=== PATIENT | female | born 1995 | race Caucasian/White ===

== ENCOUNTER 2021-03-28 15:19 | Inpatient (IN) ==
[2021-03-28 16:11] LABS: Basophils # (auto) 0.05 K/uL (0-0.2); Basophils % (auto) 0.3 %; Eosinophils # (auto) 0.14 K/uL (0-0.5); Hemoglobin 10.5 g/dL (12.0-16.0); Immature Granulocytes # (auto) 0.11 K/uL (0.00-0.02); Immature Granulocytes % (auto) 0.8 %; Lymphocytes # (auto) 2.35 K/uL (1.2-3.4); Lymphocytes % (auto) 16.4 %; Mean Corpuscular Hemoglobin 28.7 pg (25-34); Mean Corpuscular Hgb Conc 33.9 g/dL (32-36); Mean Corpuscular Volume 84.7 fL (80-100); Mean Platelet Volume 10.3 fL (7.4-10.4); Monocytes % (auto) 8.4 %; Neutrophils # (auto) 10.44 K/uL (1.4-6.5); Neutrophils % (auto) 73.1 %; Platelet Count 446 K/uL (130-400); RDW Coefficient of Variation 13.9 % (11.5-14.5); RDW Standard Deviation 42.7 fL (36.4-46.3); Red Blood Count 3.66 M/uL (4.2-5.4); White Blood Count 14.29 K/uL (4.8-10.8)
[2021-03-28 16:29] LABS: Albumin Level 2.6 gm/dl (3.4-5.0); BUN Creatinine Ratio 12.2 (10-20); Calcium 9.3 mg/dl (8.5-10.1); Creatinine Clr Calc Pharmacy 136.9 ml/min; Est GFR (African American) 127.5 ml/min; Potassium 2.8 mmol/L (3.5-5.1)
[2021-03-28 16:32] LABS: Albumin Globulin Ratio 0.7 (0.9-2); Bilirubin,Total 0.2 mg/dl (0.2-1); Globulin 3.9 gm/dl (2.5-4.0); Total Protein 6.5 gm/dl (6.4-8.2)
[2021-03-28 17:03] LABS: Creatinine Urine Random 79.7 mg/dl; Protein Creatinine Ratio Urine 0.3 (0-0.2); Total Protein Urine Random 21.9 mg/dl (0-11.9)
[2021-03-28] MEDS ORDERED: OXYTOCIN 30 UNITS/500 ML BAG IV PRN ×2 (18:19→20:53)
--- NOTE | 2021-03-28 18:25 | History & Physical Report ---
Date of Service March 28, 2021 Assessment & Plan (1) Preeclampsia: Plan: BP checks and labs revealed BPs 130-140s/80-90s. Protein/Cr ratio 0.3. I discussed these results with patient, recommended IOL. She is agreeable, questions answered. Will plan to allow patient to eat dinner, then will place mata bulb and low dose pitocin. History of Present Illness Chief Complaint: elevated BP Primary Care Provider: NO PCP 26yo @ 38 0/7, sent from office for elevated BPs. No headache, vision changes, RUQ pain. + movement, no vaginal bleeding, leaking of fluid. No reg ctx. uncomplicated. Allergies Allergy/AdvReac Type Severity Reaction Status Date / Time AUGMENTIN,BIAXIN,ERYTHROMYCIN,SUPRAX,BACTRIM,ZITHROMAX Allergy Unknown Rash Uncoded 03/28/21 15:26 Home Medications Medication Instructions Recorded Confirmed Type prenat.vits,reno,zgf-[id number] 1 tab PO DAILY 08/27/20 03/28/21 History breast pump #1 ea 01/19/21 03/28/21 Rx Patient History Medical History Varicella vaccination Surgical History S/P tonsillectomy and adenoidectomy S/P wisdom tooth extraction Family History Grandmother (Maternal) Breast cancer Father Ulcerative colitis Denies family history of Ovarian cancer Colorectal cancer Social History Smoking Status: Never smoker Hx Alcohol Use: No Hx Substance Use: No Preferred Language: Lithuanian Communication Ability: Effective Visual Impairment: No Limitations Hearing Ability: Normal 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 Other Information That Helps Us Care for You: No Feels Safe at Home: No Is there a partner from a previous relationship who is making you feel unsafe now?: No Any Concerns about Your Family Situation: No Would You Like to Speak to Someone About Your Situation: No Safety Concerns: Feels Safe At This Time Dental Care, Regularly: Yes Seatbelt Use: always Sunscreen Use: Yes Do you think of yourself as: straight/heterosexual Gender Identity: Female Assistive Devices: None Review of Systems All systems reviewed & are unremarkable except as noted in HPI & below Physical Exam Constitutional: WD/WN, vitals as above Respiratory: normal respiratory effort, lungs clear to auscultation no respiratory distress Cardiovascular: Rate/Rhythm: regular rate and regular rhythm Gastrointestinal (Abdomen): Inspection/Auscultation: abdomen normal to inspection Percussion/Palpation: abdomen soft; abdomen nontender Gravid. No s/s chorio or abruption. Skin: no rashes, warm and dry Psychiatric: A+Ox3, euthymic affect Results & Data ([facility]) Vital Signs (Past 12 Hours) Vital Signs Temp Pulse Resp BP 03/28/21 17:39 93 H 146/88 H 03/28/21 17:29 88 140/89 03/28/21 17:20 83 137/89 03/28/21 17:09 88 136/83 03/28/21 17:00 88 131/83 03/28/21 16:49 88 138/83 03/28/21 16:39 82 144/91 H 03/28/21 16:30 88 146/94 H 03/28/21 16:19 82 135/84 03/28/21 16:09 86 137/89 03/28/21 16:00 95 H 136/89 03/28/21 15:50 91 H 141/85 H 03/28/21 15:39 88 138/85 03/28/21 15:27 37.1 C 98 H 20 137/91 Code Status & VTE Plan VTE Prophylaxis Plan VTE Prophylaxis will be ordered: No Monitoring External Monitor FHT Cat 1 Tocodynamometer none Coding Level of Care Code None Diagnoses Preeclampsia O14.90
[2021-03-28] MEDS ORDERED: ONDANSETRON INJ 2 MG/ML 2 ML VIAL ONE (20:23)
--- NOTE | 2021-03-28 20:23 | Labor Progress Brief Note ---
Date of Service March 28, 2021 Subjective Patient has eaten dinner. Feeling ok, just nauseated a bit - thinks this is from being nervous. FHT Cat 1 [place] rare Cervix 50/-3 Akbar bulb placed, insufflated with 35cc sterile water. Tolerated well. Will start low dose pitocin for cervical ripening. Assessment & Plan Admission and Anticipated Discharge Date Admission Date: March 28, 2021 Results & Data ([facility]) Vital Signs (Past 12 Hours) Vital Signs Temp Pulse Resp BP 03/28/21 19:36 36.7 C 18 03/28/21 17:39 93 H 146/88 H 03/28/21 17:29 88 140/89 03/28/21 17:20 83 137/89 03/28/21 17:09 88 136/83 03/28/21 17:00 88 131/83 03/28/21 16:49 88 138/83 03/28/21 16:39 82 144/91 H 03/28/21 16:30 88 146/94 H 03/28/21 16:19 82 135/84 03/28/21 16:09 86 137/89 03/28/21 16:00 95 H 136/89 03/28/21 15:50 91 H 141/85 H 03/28/21 15:39 88 138/85 03/28/21 15:27 37.1 C 98 H 20 137/91 Coding Level of Care Code None CPT Codes Misx Procedure Codes - 41898 Placement of cervical dilator: 44593 Placement of cervical dilator ([id number]) MAGNETIC PROSPECTOR Miscellaneous Codes Misx Procedure Codes 73052 Placement of cervical dilator
[2021-03-28] MEDS ORDERED: diphenhydrAMINE Capsule 25 MG CAP PO ONE (20:53)
[2021-03-28] MEDS: LACTATED RINGER'S 1,000 ML IV PRN (21:24)
[2021-03-29] MEDS: LACTATED RINGER'S 1,000 ML IV PRN ×2 (05:20→10:17)
[2021-03-29] MEDS: ONDANSETRON INJ 2 MG/ML 2 ML VIAL IV PRN ×2 (06:11→14:32)
[2021-03-29 06:57] LABS: Hematocrit (blood only) 31.7 % (37-47); Hemoglobin 10.7 g/dL (12.0-16.0); Mean Corpuscular Hemoglobin 28.3 pg (25-34); Mean Corpuscular Hgb Conc 33.8 g/dL (32-36); Mean Corpuscular Volume 83.9 fL (80-100); Mean Platelet Volume 10.5 fL (7.4-10.4); Platelet Count 411 K/uL (130-400); RDW Coefficient of Variation 13.9 % (11.5-14.5); RDW Standard Deviation 42.2 fL (36.4-46.3); Red Blood Count 3.78 M/uL (4.2-5.4); White Blood Count 19.49 K/uL (4.8-10.8)
[2021-03-29 07:24] LABS: Albumin Level 2.7 gm/dl (3.4-5.0); Calcium 9.5 mg/dl (8.5-10.1); Creatinine Clr Calc Pharmacy 126.8 ml/min; Est GFR (African American) 116.2 ml/min; Est GFR (Non-African American) 100.2 ml/min; Potassium 2.8 mmol/L (3.5-5.1)
[2021-03-29 07:27] LABS: Albumin Globulin Ratio 0.7 (0.9-2); Bilirubin,Total 0.3 mg/dl (0.2-1); Total Protein 6.7 gm/dl (6.4-8.2)
--- NOTE | 2021-03-29 07:37 | Labor Progress Brief Note ---
Date of Service March 29, 2021 Subjective Akbar bulb fell out last night, pitocin began to increase, now at 15. FHT Cat 1 [place] Q 2 SVE 4-5/70/-3, soft, posterior Continue IOL. Pt will want epidural at some point, not yet. Labs reviewed. Assessment & Plan Admission and Anticipated Discharge Date Admission Date: March 28, 2021 Results & Data ([facility]) Vital Signs (Past 12 Hours) Vital Signs Temp Pulse Resp BP 03/29/21 07:32 64 136/82 03/29/21 06:09 73 18 142/84 H 03/29/21 05:06 75 135/87 03/29/21 04:13 81 18 132/82 03/29/21 03:15 36.6 C 78 16 133/76 03/29/21 02:15 73 18 138/75 03/29/21 01:18 81 18 139/83 03/28/21 23:36 36.8 C 83 18 133/79 03/28/21 22:31 83 18 136/74 03/28/21 21:23 87 18 139/85 Coding Level of Care Code None
--- NOTE | 2021-03-29 09:25 | Labor Progress Brief Note ---
Date of Service March 29, 2021 Subjective Introduced myself to pt as taking over care earlier. Uncomfortable in bed w/ back pain, more tolerable on ball or standing/walking. Pit at 17 Assessment & Plan (1) Preeclampsia: Plan: 26 y/o G1 at 38 1/7 wga admitted for IOL for pre-eclampsia w/o SF VSS, normal to mild range BPs Fetus cat 1 Labor - pit at 17, now s/p arom. Continue augmentation GBS neg Epidural PRN Admission and Anticipated Discharge Date Admission Date: March 28, 2021 Physical Exam Genitourinary: Manual OB Exam: + cervical dilation 4 cm, + cervical effacement 70%, + station -2 and + amniotic fluid (AROM) clear OB Exam Monitor Tracing: + external FHT monitor used, + external uterine monitor used (q2-4) and + category I (145/mod/+accel/-decel) Results & Data ([facility]) Vital Signs (Past 12 Hours) Vital Signs Temp Pulse Resp BP 03/29/21 08:33 88 141/86 H 03/29/21 07:32 64 136/82 03/29/21 06:09 73 18 142/84 H 03/29/21 05:06 75 135/87 03/29/21 04:13 81 18 132/82 03/29/21 03:15 97.9 F 78 16 133/76 03/29/21 02:15 73 18 138/75 03/29/21 01:18 81 18 139/83 03/28/21 23:36 98.2 F 83 18 133/79 03/28/21 22:31 83 18 136/74 03/28/21 21:23 87 18 139/85 Coding Level of Care Code None Diagnoses Preeclampsia O14.90
[2021-03-29] MEDS ORDERED: ePHEDrine sulfate 50 MG/ML AMP ONE (09:36)
[2021-03-29] MEDS ORDERED: SODIUM CHLORIDE 0.9% INJ 10 ML VIAL ONE (09:36)
[2021-03-29] MEDS ORDERED: BUPIVACAINE 0.25% 30 ML VIAL ONE (09:36)
[2021-03-29] MEDS ORDERED: fentaNYL citrate 100 MCG/2 ML VIAL ONE (09:36)
[2021-03-29] MEDS ORDERED: fentaNYL 2MCG/ML ROPIVACAINE 1.25MG/ML 100 ML BAG EPI ONE (09:37)
[2021-03-29] MEDS ORDERED: ePHEDrine sulfate 50 MG/ML AMP IV PRN (10:12)
[2021-03-29] MEDS ORDERED: NALOXONE HCL 1 MG in SODIUM CHLORIDE 0.9% 1000ML 1,000 ML IV PRN (10:12)
[2021-03-29] MEDS ORDERED: NALOXONE HCL 0.4 MG/1 ML VIAL/CARP IV PRN (10:12)
[2021-03-29] MEDS ORDERED: ONDANSETRON INJ 2 MG/ML 2 ML VIAL IV PRN (10:12)
[2021-03-29] MEDS ORDERED: NALBUPHINE HCL INJ 10 MG/ML AMP IV PRN (10:12)
[2021-03-29] MEDS ORDERED: fentaNYL 2MCG/ML ROPIVACAINE 1.25MG/ML 100 ML BAG EPI PRN (10:12)
[2021-03-29] MEDS ORDERED: diphenhydrAMINE 50 MG/ML VIAL IV PRN (10:12)
--- NOTE | 2021-03-29 10:14 | Anesthesiology Consultation ---
Date of Service March 29, 2021 Assessment & Plan Chart Review Chart Review: Patient NOT seen in Pre Admission Testing and Acceptable Risk for Labor Epidural Consults Requested none ASA ASA2 Proposed Anesthesia Anesthesia Type: Labor Epidural and CSE Risk / Benefits Reviewed With: PT / POA / Parent / Guardian, Accepts Plan and Informed Consent Obtained History Height/Weight Height: 5 ft 5 in Weight: 105.233 kg Allergies Allergy/AdvReac Type Severity Reaction Status Date / Time AUGMENTIN,BIAXIN,ERYTHROMYCIN,SUPRAX,BACTRIM,ZITHROMAX Allergy Unknown Rash Uncoded 03/28/21 15:26 Medications Home Medications Medication Instructions Recorded Confirmed Last Taken prenat.vits,reno,fuc-kjwc-jiqko 1 tab PO DAILY 08/27/20 03/28/21 03/28/21 07:00 breast pump #1 ea 01/19/21 03/28/21 Unknown Active Medications Generic Name Dose Route Start Last Admin Trade Name Freq PRN Reason Stop Dose Admin Lactated Ringer's 1,000 mls @ 125 mls/hr 03/28/21 18:19 03/29/21 09:40 Lr IV 03/30/21 18:18 999 mls/hr .Q8H PRN Infusion L&D Protocol Protocol Oxytocin 30 units in 500 mls @ 17 mls/hr 03/28/21 20:53 03/29/21 08:39 Pitocin IV 03/30/21 20:52 1.02 units/hr .Q24H PRN 17 mls/hr Labor Induction/Augmentation Titration Protocol 1.02 UNITS/HR Ondansetron HCl 4 mg 03/28/21 20:53 03/29/21 06:11 Ondansetron Inj 2 Mg/Ml 2 Ml Vial IV 04/27/21 20:52 4 mg Q6H PRN Administration Nausea And Vomiting NPO Date Last Intake of Fluids: 03/29/21 Time Last Intake of Fluids: 07:00 Date Last Intake of Solids: 03/29/21 Time Last Intake of Solids: 05:00 Past Medical History Medical History Varicella vaccination Exercise / Class Metabolic Activity II 4-5 Yardwork/Stairs/Walk up hill Past Family History Family History Grandmother (Maternal) Breast cancer Father Ulcerative colitis Denies family history of Ovarian cancer Colorectal cancer Past Surgical History Surgical History S/P tonsillectomy and adenoidectomy S/P wisdom tooth extraction Past Anesthesia History No Hx of Anesthesia Complications and No Family Hx of Anesthesia Complications History of PONV No Hx of PONV and No Hx of Motion Sickness Social History Smoking Status: Never smoker Hx Alcohol Use: No Hx Substance Use: No Review of Systems no chest pain or sob Physical Exam Vital Signs Last Vital Signs Temp 36.6 C 03/29/21 03:15 Pulse 88 03/29/21 10:07 Resp 18 03/29/21 06:09 BP 140/91 03/29/21 09:33 Pulse Ox 97 03/29/21 10:07 ENMT Mouth: no TMJ abnormality Thyromental Distance: > or= 3.5 Finger Breadths Mallampati Class: II Neck normal visual inspection Respiratory normal respiratory effort Auscultation: lungs clear to auscultation bilaterally Cardiovascular Rate/Rhythm: regular rate and regular rhythm Musculoskeletal Spine: normal cervical ROM Neurologic moves all extremities Psychiatric Orientation: alert and oriented x 3 Testing Laboratory Results 03/29/21 06:22 03/29/21 06:22
--- NOTE | 2021-03-29 11:47 | Labor Progress Brief Note ---
Date of Service March 29, 2021 Subjective Comfortable w/ epidural Assessment & Plan (1) Preeclampsia: Plan: 26 y/o G1 at 38 1/7 wga admitted for IOL for pre-eclampsia w/o SF VSS, BPs improved Fetus cat 1 Labor - pit at 17, progression in station noted. Continue augmentation GBS neg Epidural in place Admission and Anticipated Discharge Date Admission Date: March 28, 2021 Physical Exam Genitourinary: Manual OB Exam: + cervical dilation 4 cm, + cervical effacement 70% and + station -2 (good improvement in station from prior exam) OB Exam Monitor Tracing: + external FHT monitor used, + external uterine monitor used (q4) and + category I (120/mod/+accel/-decel) Results & Data ([facility]) Vital Signs (Past 12 Hours) Vital Signs Temp Pulse Resp BP Pulse Ox 03/29/21 11:37 73 97 03/29/21 11:35 92 H 93 03/29/21 11:32 86 96 03/29/21 11:27 58 L 122/63 92 03/29/21 11:22 62 93 03/29/21 11:21 67 93 03/29/21 11:17 63 93 03/29/21 11:16 71 115/67 03/29/21 11:14 64 93 03/29/21 11:12 75 96 03/29/21 11:07 71 97 03/29/21 11:06 66 121/71 03/29/21 11:02 73 96 03/29/21 10:57 69 98 03/29/21 10:56 71 122/66 03/29/21 10:52 70 96 03/29/21 10:47 70 97 03/29/21 10:46 77 122/74 21 10:45 77 92 03/29/21 10:44 74 115/68 03/29/21 10:42 76 112/63 95 03/29/21 10:40 72 116/65 03/29/21 10:38 77 122/69 03/29/21 10:37 78 96 03/29/21 10:36 86 122/68 94 03/29/21 10:34 75 120/67 03/29/21 10:32 84 96 03/29/21 10:27 89 97 03/29/21 10:22 112 H 95 03/29/21 10:17 116 H 96 03/29/21 10:12 80 98 03/29/21 10:07 88 97 03/29/21 10:02 100 H 98 03/29/21 09:57 91 H 99 03/29/21 09:52 94 H 99 03/29/21 09:33 85 140/91 03/29/21 09:20 76 143/84 H 03/29/21 08:33 88 141/86 H 03/29/21 07:32 64 136/82 03/29/21 06:09 73 18 142/84 H 03/29/21 05:06 75 135/87 03/29/21 04:13 81 18 132/82 03/29/21 03:15 97.9 F 78 16 133/76 03/29/21 02:15 73 18 138/75 03/29/21 01:18 81 18 139/83 Coding Level of Care Code None Diagnoses Preeclampsia O14.90
--- NOTE | 2021-03-29 12:53 | Labor Progress Brief Note ---
Date of Service March 29, 2021 Subjective Has spot where epidural not covering pain, RN requested exam to see if progression associated Assessment & Plan (1) Preeclampsia: Plan: 26 y/o G1 at 38 1/7 wga admitted for IOL for pre-eclampsia w/o SF VSS, BPs improved Fetus cat 1 Labor - pit at 19, progress noted. Continue augmentation GBS neg Epidural in place, repositioned by nursing to try to get more comfortable Admission and Anticipated Discharge Date Admission Date: March 28, 2021 Physical Exam Genitourinary: Manual OB Exam: + cervical dilation 5 cm, + cervical effacement 70% and + station -1 OB Exam Monitor Tracing: + external FHT monitor used, + external uterine monitor used (q3-4) and + category I (125/mod/+accel/-decel) Results & Data ([facility]) Vital Signs (Past 12 Hours) Vital Signs Temp Pulse Resp BP Pulse Ox 03/29/21 12:50 83 94 03/29/21 12:47 82 96 03/29/21 12:42 89 96 03/29/21 12:37 93 H 95 03/29/21 12:35 93 H 141/86 H 94 03/29/21 12:32 87 96 03/29/21 12:27 92 H 96 03/29/21 12:22 71 95 03/29/21 12:20 74 130/75 03/29/21 12:17 80 97 03/29/21 12:12 90 96 03/29/21 12:07 83 97 03/29/21 12:05 62 117/73 03/29/21 12:02 82 97 03/29/21 11:59 64 94 03/29/21 11:57 78 95 03/29/21 11:52 68 95 03/29/21 11:50 67 122/76 03/29/21 11:49 67 94 03/29/21 11:47 83 96 03/29/21 11:43 71 94 03/29/21 11:42 79 96 03/29/21 11:37 73 97 03/29/21 11:35 92 H 93 03/29/21 11:32 86 96 03/29/21 11:27 58 L 122/63 92 03/29/21 11:22 62 93 03/29/21 11:21 67 93 03/29/21 11:17 63 93 07/20/21 11:16 71 115/67 07/20/21 11:14 64 93 07/20/21 11:12 75 96 07/20/21 11:07 71 97 07/20/21 11:06 66 121/71 07/20/21 11:02 73 96 07/20/21 10:57 69 98 07/20/21 10:56 71 122/66 07/20/21 10:52 70 96 07/20/21 10:47 70 97 07/20/21 10:46 77 122/74 07/20/21 10:45 77 92 07/20/21 10:44 74 115/68 07/20/21 10:42 76 112/63 95 07/20/21 10:40 72 116/65 07/20/21 10:38 77 122/69 07/20/21 10:37 78 96 07/20/21 10:36 86 122/68 94 07/20/21 10:34 75 120/67 07/20/21 10:32 84 96 07/20/21 10:27 89 97 07/20/21 10:22 112 H 95 07/20/21 10:17 116 H 96 07/20/21 10:12 80 98 07/20/21 10:07 88 97 07/20/21 10:02 100 H 98 07/20/21 09:57 91 H 99 07/20/21 09:52 94 H 99 07/20/21 09:33 85 140/91 07/20/21 09:20 76 143/84 H 07/20/21 08:33 88 141/86 H 07/20/21 07:32 64 136/82 07/20/21 06:09 73 18 142/84 H 07/20/21 05:06 75 135/87 07/20/21 04:13 81 18 132/82 07/20/21 03:15 97.9 F 78 16 133/76 07/20/21 02:15 73 18 138/75 07/20/21 01:18 81 18 139/83 Coding Level of Care Code None Diagnoses Preeclampsia O14.90
--- NOTE | 2021-03-29 16:19 | Delivery Summary ---
Vaginal Delivery Summary Date of Service March 29, 2021 Vaginal Delivery Summary [facility] PREOPERATIVE DIAGNOSIS: 1. Single intrauterine at 38 1/7 2. Pre-eclampsia without severe features POSTOPERATIVE DIAGNOSIS: 1. Single intrauterine at 38 1/7 2. Pre-eclampsia without severe features 3. Delivered PROCEDURE: 1. Normal spontaneous vaginal delivery. SURGEON: Cris Alexander MD ANESTHESIA: Epidural. ESTIMATED BLOOD LOSS: 300 mL FLUIDS: Continuous LR. URINE OUTPUT: None. COMPLICATIONS: None. CONDITION: Stable. INDICATIONS: 26 G1 at 38 1/7 presented 1 day ago for routine OB care. At that visit, was noted to have mild range blood pressures and was sent to labor and delivery for evaluation. She was asymptomatic, however BPs remained mild range over 4 hours and was found to have UP:C 0.3. As such, she met criteria for pre- eclampsia and was recommended for IOL. Mata bulb was placed with pitocin. Following mata bulb expulsion, pitocin was titrated up. She underwent artificial rupture of membranes. She received an epidural for pain control. She then progressed to complete and desired to push. FINDINGS: A viable female with Apgars of 8 and 8 at 1 and 5 minutes respectively. SPECIMEN: Cord blood OPERATIVE REPORT: The patient progressed to 10 cm, 100% effaced and +2 station, pushed over intact perineum with anesthesia to deliver a viable female infant, Apgars as above. Head of delivered in KYLIE position. Loose body cord was present and delivered through. Body and shoulders were delivered without difficulty. was delivered to maternal abdomen and nursing staff. Delayed cord clamping was performed for 60 seconds. Cord was clamped and cut. Cord blood was obtained. Placenta delivered spontaneously intact with 3-vessel cord. IV oxytocin and fundal massage were given for excellent hemostasis. Vagina, cervix, perineum, and placenta were inspected. A vaginal lacerations just inside the introitus was noted and repaired using 3-0 Vicryl. A hemostatic R labial laceration was noted and not needed to be repaired. Lacerations were noted to be excellently hemostatic. Sponge and needle counts correct x2. No sponges were left behind. Mother and stable in immediate period[place] [facility] [place] Charge Vaginal Delivery Codes: 43309 global code for the antepartum, delivery, and post- Delivery Type Details: [facility]
[2021-03-29] MEDS ORDERED: SUPERCREAM 0.870% 15 GM JAR EXT PRN (16:22)
[2021-03-29] MEDS ORDERED: HYDROCORTISONE ACETATE 25 MG SUPP PR PRN (16:22)
[2021-03-29] MEDS ORDERED: BENZOCAINE 20% AER SPR 82.5 GM CAN EXT PRN (16:22)
[2021-03-29] MEDS ORDERED: bisacodyL 10 MG SUPP PR PRN (16:22)
[2021-03-29] MEDS ORDERED: OXYTOCIN 30 UNITS/500 ML BAG IV PRN (16:22)
[2021-03-29] MEDS ORDERED: ACETAMINOPHEN 325 MG TAB PO PRN (16:22)
--- NOTE | 2021-03-29 17:30 | Anesthesia Procedure Note ---
Date of Service March 29, 2021 Anesthesia Post Epidural Note Vital Signs Vital Signs: Temp Pulse Resp BP Pulse Ox 36.8 C 79 20 133/81 94 03/29/21 13:06 03/29/21 17:20 03/29/21 13:06 03/29/21 17:20 03/29/21 15:44 Notes Mental Status: alert / awake / arousable and participated in evaluation Nausea / Vomiting: adequately controlled Pain: adequately controlled Airway Patency, RR, SpO2: stable & adequate BP & HR: stable & adequate Hydration State: stable & adequate Neuraxial Anesthesia: was administered and sensory block is resolving Anesthetic Complications: no major complications apparent and Pt Satisfied with anesthetic care Epidural: Removed without complications and With tip intact
[2021-03-29] MEDS: IBUPROFEN 600 MG TAB PO PRN ×2 (18:12→22:45)
[2021-03-29] MEDS: DOCUSATE SODIUM 100 MG CAP PO SCH (20:10)
[2021-03-30] MEDS: IBUPROFEN 600 MG TAB PO PRN ×2 (05:12→18:23)
--- NOTE | 2021-03-30 06:00 | Obstetrical Progress Note ---
Date of Service <Tyra Cassidy MD - Last Filed: 03/30/21 07:00> March 30, 2021 Assessment & Plan <Tyra Cassidy MD - Last Filed: 03/30/21 07:00> (1) Encounter for care and examination after delivery: Stable, routine care -regular ob diet -, encourage ambulation -Rh+, RI, GBS- -labs pending -monitor vitals -anticipate d/c tomorrow -1 wk BP check at outpatient (2) : (3) Supervision of normal first : (4) Preeclampsia: BP wnl, will continue to monitor vitals <Cris Alexander MD - Last Filed: 03/30/21 07:15> (1) Encounter for care and examination after delivery: (2) : (3) Supervision of normal first : (4) Preeclampsia: Subjective <Tyra Cassidy MD - Last Filed: 03/30/21 07:00> 26 y/o female who is now PPD #1 following spontaneous vaginal delivery. Reports feeling well overall this morning. + abdominal cramping & 3/10 pain well managed on analgesics. Voiding +. Tolerating meals well and able to ambulate some. + passing gas but no bowel movements. Persistent lochia this morning. . Review of Systems Denies fever, chills, sweats Denies shortness of breath, difficulty breathing, chest pain, palpitations, chest pressure. Denies breast pain. Denies dysuria. Denies headache or changes in vision Review of Systems All systems reviewed & are unremarkable except as noted in HPI & below Physical Exam <Tyra Cassidy MD - Last Filed: 03/30/21 07:00> General: Alert, oriented. No acute distress. Cardiac: Regular rate and rhythm, no murmurs/rubs/gallops. Respiratory: Clear to auscultation bilaterally a/p, no wheezes/rales/rhonchi. No increased work of breathing. Symmetrical chest rise. No respiratory distress. Abdomen: Soft, nontender, nondistended. Bowel sounds present. Uterus: Uterine fundus firm, palpable 1 cm below umbilicus. Lower Extremities: No lower extremity edema or swelling. No deep calf pain. Doe's negative bilaterally.. Results & Data ([facility]) <Tyra Cassidy MD - Last Filed: 03/30/21 07:00> Vital Signs (Past 12 Hours) Vital Signs Temp Pulse Resp BP Pulse Ox 03/30/21 04:45 36.6 C 69 18 113/74 03/29/21 23:05 36.9 C 78 18 121/71 03/29/21 20:10 36.9 C 73 16 119/75 03/29/21 18:05 36.6 C 79 16 130/83 97 <Cris Alexander MD - Last Filed: 03/30/21 07:15> Co-Signing Physician Notes Resident Physician Supervision Note: I was present with Dr. Cassidy during the history and exam. I discussed the case with the resident and agree with the findings and plan as documented in the note. Any exceptions or clarifications are listed here: PP1 s/p after IOL for pre-eclampsia w/o SF. Doing well, meeting milestones. Having some difficulty w/ but working with it. VSS, exam benign and wnl. BPs normalized after delivery. Continue routine pp care, plan for 1 wk BP check after discharge Documented By: Cris Alexander MD Resident Activity Tracking <Tyra Cassidy MD - Last Filed: 03/30/21 07:00> Resident Involvement: Resident Care Provided Care Provided: OB Delivery
[2021-03-30 07:35] LABS: Hematocrit (blood only) 28.5 % (37-47); Hemoglobin 9.5 g/dL (12.0-16.0); Mean Corpuscular Hemoglobin 28.4 pg (25-34); Mean Corpuscular Hgb Conc 33.3 g/dL (32-36); Mean Corpuscular Volume 85.1 fL (80-100); Mean Platelet Volume 10.7 fL (7.4-10.4); Platelet Count 342 K/uL (130-400); RDW Coefficient of Variation 13.9 % (11.5-14.5); RDW Standard Deviation 43.1 fL (36.4-46.3); Red Blood Count 3.35 M/uL (4.2-5.4); White Blood Count 18.28 K/uL (4.8-10.8)
[2021-03-30 07:59] LABS: Albumin Level 2.2 gm/dl (3.4-5.0); BUN Creatinine Ratio 8.3 (10-20); Calcium 8.5 mg/dl (8.5-10.1); Creatinine Clr Calc Pharmacy 112.8 ml/min; Est GFR (African American) 100.9 ml/min; Est GFR (Non-African American) 87.1 ml/min; Potassium 2.8 mmol/L (3.5-5.1)
[2021-03-30 08:02] LABS: Albumin Globulin Ratio 0.6 (0.9-2); Bilirubin,Total 0.3 mg/dl (0.2-1); Globulin 3.7 gm/dl (2.5-4.0); Total Protein 5.9 gm/dl (6.4-8.2)
[2021-03-30] MEDS: DOCUSATE SODIUM 100 MG CAP PO SCH ×2 (08:43→21:10)
[2021-03-30] MEDS: PRENATAL VITAMIN 1 TAB PO SCH (08:43)
[2021-03-30] MEDS ORDERED: NON-FORMULARY MEDICATION (Prenat.Vits,Cal,Min-Iron-Folic tablet) PO SCH (09:00)
[2021-03-30] MEDS ORDERED: DIPHTHERIA/TETANUS/PERTUSSIS 0.5 ML SYR/VIAL IM ONE (09:00)
[2021-03-30] MEDS: POTASSIUM CHLORIDE CRTAB 20 MEQ TABCR PO SCH ×2 (09:34→21:00)
[2021-03-30] MEDS: FERROUS SULFATE 325 MG TAB PO SCH (09:34)
[2021-03-30] MEDS ORDERED: bisacodyL 5 MG TABEC PO SCH (20:00)
[2021-03-31] MEDS ORDERED: ONDANSETRON 4 MG OD TAB PO PRN (03:05)
[2021-03-31] MEDS ORDERED: ONDANSETRON 4 MG OD TAB ONE (03:08)
[2021-03-31 06:27] LABS: Hematocrit (blood only) 30.2 % (37-47)
--- NOTE | 2021-03-31 06:40 | Obstetrical Progress Note ---
Date of Service <Tyra Cassidy MD - Last Filed: 03/31/21 07:19> March 31, 2021 Assessment & Plan <Tyra Cassidy MD - Last Filed: 03/31/21 07:19> (1) Encounter for care and examination after delivery: Stable, routine care -BPs stable and wnl -Rh+, RI, GBS- -d/c today -1 wk BP check at outpatient -6 wk visit (2) : (3) Supervision of normal first : (4) Preeclampsia: BP wnl, will continue to monitor vitals <Carissa Mckeon MD, FACOG - Last Filed: 03/31/21 07:42> (1) Encounter for care and examination after delivery: (2) : (3) Supervision of normal first : (4) Preeclampsia: Subjective <Tyra Cassidy MD - Last Filed: 03/31/21 07:19> 26 y/o female who is now PPD #2 following spontaneous vaginal delivery for mild preeclampsia at 38.3 weeks. Resting comfortably this morning. 0/10 pain well managed on analgesics. Voiding +. Tolerating meals well and able to ambulate some. + passing gas but no bowel movements. Persistent lochia with improvement this morning. . Review of Systems Denies fever, chills, sweats Denies shortness of breath, difficulty breathing, chest pain, palpitations, chest pressure. Denies breast pain. Denies dysuria. Denies headache or changes in vision Review of Systems All systems reviewed & are unremarkable except as noted in HPI & below Physical Exam <Tyra Cassidy MD - Last Filed: 03/31/21 07:19> General: Alert, oriented. No acute distress. Cardiac: Regular rate and rhythm, no murmurs/rubs/gallops. Respiratory: Clear to auscultation bilaterally a/p, no wheezes/rales/rhonchi. No increased work of breathing. Symmetrical chest rise. No respiratory distress. Abdomen: Soft, nontender, nondistended. Bowel sounds present. Uterus: Uterine fundus firm, palpable 1 cm below umbilicus. Lower Extremities: No lower extremity edema or swelling. No deep calf pain. Doe's negative bilaterally.. Results & Data ([facility]) <Tyra Cassidy MD - Last Filed: 03/31/21 07:19> Vital Signs (Past 12 Hours) Vital Signs Temp Pulse Resp BP 03/30/21 23:30 36.5 C 76 20 114/76 03/30/21 20:03 36.6 C 88 20 122/79 <Carissa Mckeon MD, FACOG - Last Filed: 03/31/21 07:42> Co-Signing Physician Notes Resident Physician Supervision Note: I interviewed and examined the patient. Discussed with Dr. Cassidy and agree with findings and plan as documented in the note. Any exceptions or clarifications are listed here: Doing well. BPs good. no n/s pet--reviewed with the patient. Plan f/u in the office for bp check on Sunday. Documented By: Carissa Mckeon MD, FACOG Resident Activity Tracking <Tyra Cassidy MD - Last Filed: 03/31/21 07:19> Resident Involvement: Resident Care Provided Care Provided: OB Delivery
[2021-03-31] MEDS: PRENATAL VITAMIN 1 TAB PO SCH (08:06)
[2021-03-31] MEDS: DOCUSATE SODIUM 100 MG CAP PO SCH (08:06)
[2021-03-31] MEDS: FERROUS SULFATE 325 MG TAB PO SCH (08:06)
== END 2021-03-31 09:59 | disposition home or self-care (01) | DRG 807 ==
LOC: OPB 15:19 → 4S1 15:22 → 4S2 03-29 18:25

== ENCOUNTER 2024-03-24 07:33 | Inpatient (IN) ==
[2024-03-24] MEDS ORDERED: OXYTOCIN 30 UNITS/NSS 30 UNITS/500 ML BAG IV PRN ×2 (07:39→15:40)
[2024-03-24] MEDS ORDERED: LIDOCAINE 1% LOCAL 20 ML VIAL INFIL PRN (07:39)
[2024-03-24] MEDS ORDERED: CALCIUM CARBONATE 500 MG CHEWABLE TAB PO PRN (07:39)
[2024-03-24 08:28] LABS: Hemoglobin 10.4 g/dl (12.0-16.0); Mean Corpuscular Hemoglobin 26.9 pg (25.0-34.0); Mean Corpuscular Hgb Conc 33.5 g/dL (32.0-36.0); Mean Corpuscular Volume 80.3 fL (80.0-100.0); Mean Platelet Volume 10.3 fL (9.4-12.4); Platelet Count 303 K/uL (130-400); RDW Coefficient of Variation 13.7 % (11.5-14.5); RDW Standard Deviation 39.5 fL (36.4-46.3); Red Blood Count 3.86 M/uL (4.20-5.40)
--- NOTE | 2024-03-24 08:51 | History & Physical Report ---
Date of Service March 24, 2024 Assessment & Plan (1) Encounter for induction of labor: Plan admit, iv, labs. arom now and start pitocin. pt agreeable, desires epidural for pain mgmt. fhts categ 1. Admission and Anticipated Discharge Date Admission Date: March 24, 2024 History of Present Illness Chief Complaint: planned induction. elective Primary Care Provider: Taty Norwood MD 29yo at 39+wks ega presents to LD for planned elective induction. Denies rom, vb. +FM. No ctx. PNC c/b 1. Prior preg with preeclampsia PNL Rh pos, RI, gbs neg OBH: x 1 GYNH: nl paps, no stds. Allergies Allergy/AdvReac Type Severity Reaction Status Date / Time azithromycin [From Zithromax] Allergy Unknown Verified 03/20/24 11:23 cefixime [From Suprax] Allergy Unknown Verified 03/20/24 11:23 clarithromycin [From Biaxin] Allergy Unknown Verified 03/20/24 11:23 erythromycin base Allergy Unknown Verified 03/20/24 11:23 sulfamethoxazole Allergy Unknown Verified 03/20/24 11:23 [From Bactrim] trimethoprim [From Bactrim] Allergy Unknown Verified 03/20/24 11:23 Home Medications Medication Instructions Recorded Confirmed Type 21-iron fu-folic acid PO 08/13/23 03/20/24 History [ Complete] triamcinolone acetonide 0.1 % 1 applic topical BID 2 weeks #80 01/16/24 03/20/24 Rx topical ointment grams breast pump #1 ea 02/05/24 03/20/24 Rx Patient History Medical History Encounter for care and examination after delivery Preeclampsia Encounter for other screening follow-up Supervision of normal first Varicella vaccination Surgical History Status post myringotomy with tube placement of both ears S/P wisdom tooth extraction S/P tonsillectomy and adenoidectomy Family History Grandmother (Maternal) Breast cancer Myocardial infarction Father Ulcerative colitis Grandfather (Paternal) Myocardial infarction Prostate cancer Lymphoma Grandmother (Paternal) Myocardial infarction Diabetes Grandfather (Maternal) Melanoma Aunt Crohn's disease Denies family history of Ovarian cancer Colorectal cancer Social History Smoking Status: Never smoker Do You Dip or Chew Tobacco: No; Hx Alcohol Use: No Hx Substance Use: No Preferred Language: Maltese Communication Ability: Effective Visual Impairment: No Limitations Hearing Ability: Normal Plan Nurse Required: No Beliefs That Will Affect Care: None marital status: marital status details: Yahir Soto (30) [phone] Current Living Situation: Spouse and Family Current Living Situation Comment: lives with spouse, child, dogs current occupational status: employed current occupation: [employer] Feels Safe at Home: Yes Diet: regular Dental Care, Regularly: Yes Physical Activity Frequency: Does not Exercise Seatbelt Use: always Sunscreen Use: Yes Do you think of yourself as: straight/heterosexual Gender Identity: Female Assistive Devices: None Review of Systems as per Subjective / HPI Physical Exam Constitutional: WD/WN, vitals as above Respiratory: normal respiratory effort, lungs clear to auscultation Cardiovascular: Rate/Rhythm: regular rate and regular rhythm Gastrointestinal (Abdomen): soft gravid nt efw 8-9# Musculoskeletal: no edema nontender calves Neurologic: grossly normal Psychiatric: A+Ox3, euthymic affect Genitourinary: Manual OB Exam: + cervical dilation (2-3cm. med, mid), + cervical effacement 50%, + station -2 and + amniotic fluid (arom) clear OB Exam Monitor Tracing: + external FHT monitor used, + external uterine monitor used (irreg), + category I and + normal FHT variability Results & Data Vital Signs (Past 12 Hours) Vital Signs Pulse BP 03/24/24 08:41 96 H 125/74 Coding Level of Care Code None Diagnoses Encounter for induction of labor Z34.90
[2024-03-24] MEDS: OXYTOCIN 30 UNITS/NSS 30 UNITS/500 ML BAG IV PRN (09:29)
[2024-03-24] MEDS: LACTATED RINGER'S 1,000 ML IV PRN (09:30)
[2024-03-24] MEDS ORDERED: SODIUM CHLORIDE 0.9% PF INJ 10 ML VIAL EPI PRN (12:48)
[2024-03-24] MEDS ORDERED: NALBUPHINE HCL 5 MG in SYRINGE 0 ML IV PRN (12:48)
[2024-03-24] MEDS ORDERED: NALOXONE HCL 0.4 MG/1 ML VIAL/CARP IV PRN (12:48)
[2024-03-24] MEDS ORDERED: diphenhydrAMINE 50 MG/ML VIAL IV PRN (12:48)
[2024-03-24] MEDS ORDERED: BUPIVACAINE 0.25% PF 30 ML VIAL EPI PRN (12:48)
[2024-03-24] MEDS ORDERED: fentANYL 2 MCG/ML BUPIVacaine 0.125%-NSS 100ML BAG EPI PRN (12:48)
[2024-03-24] MEDS ORDERED: NALOXONE HCL 1 MG in SODIUM CHLORIDE 0.9% 1,000 ML IV PRN (12:48)
[2024-03-24] MEDS ORDERED: fentaNYL citrate PF 100 MCG/2 ML VIAL EPI PRN (12:48)
[2024-03-24] MEDS ORDERED: ROPIVACAINE 0.5% PF 5 MG/ML 20 ML VIAL EPI PRN (12:48)
[2024-03-24] MEDS ORDERED: ePHEDrine sulfate 50 MG/ML AMP IV PRN (12:48)
[2024-03-24] MEDS ORDERED: LIDOCAINE 2% MPF LOCAL 5 ML VIAL EPI PRN (12:48)
--- NOTE | 2024-03-24 12:52 | Anesthesiology Consultation ---
Date of Service March 24, 2024 Assessment & Plan Chart Review Chart Review: Patient NOT seen in Pre Admission Testing and Acceptable Risk for Labor Epidural Consults Requested none ASA ASA2 Proposed Anesthesia Anesthesia Type: Labor Epidural Risk / Benefits Reviewed With: PT / POA / Parent / Guardian, Accepts Plan and Informed Consent Obtained History Height/Weight Height: 5 ft 5 in Weight: 104.326 kg Allergies Allergy/AdvReac Type Severity Reaction Status Date / Time azithromycin [From Zithromax] Allergy Unknown Verified 03/20/24 11:23 cefixime [From Suprax] Allergy Unknown Verified 03/20/24 11:23 clarithromycin [From Biaxin] Allergy Unknown Verified 03/20/24 11:23 erythromycin base Allergy Unknown Verified 03/20/24 11:23 sulfamethoxazole Allergy Unknown Verified 03/20/24 11:23 [From Bactrim] trimethoprim [From Bactrim] Allergy Unknown Verified 03/20/24 11:23 Medications Home Medications Medication Instructions Recorded Confirmed Last Taken 21-iron fu-folic acid PO 08/13/23 03/20/24 Unknown [ Complete] triamcinolone acetonide 0.1 % 1 applic topical BID 2 weeks #80 01/16/24 03/20/24 Unknown topical ointment grams breast pump #1 ea 02/05/24 03/20/24 Unknown Active Medications Generic Name Dose Route Start Last Admin Trade Name Freq PRN Reason Stop Dose Admin Oxytocin 30 units in 500 mls @ 7 mls/hr 03/24/24 07:39 03/24/24 11:35 Pitocin 30 Units/Nss IV 03/26/24 07:38 0.42 units/hr .Q24H PRN 7 mls/hr Labor Induction/Augmentation Titration Protocol 0.42 UNITS/HR Lactated Ringer's 1,000 mls @ 125 mls/hr 03/24/24 07:39 03/24/24 12:28 Lr IV 03/26/24 07:38 999 mls/hr .Q8H PRN Infusion L&D Protocol Protocol NPO Date Last Intake of Fluids: 03/24/24 Time Last Intake of Fluids: 12:30 Date Last Intake of Solids: 03/24/24 Time Last Intake of Solids: 07:00 Past Medical History Medical History Encounter for care and examination after delivery Preeclampsia Encounter for other screening follow-up Supervision of normal first Varicella vaccination Exercise / Class Metabolic Activity 1 > 8 Run/Swim/Ski/Tennis Past Family History Family History Grandmother (Maternal) Breast cancer Myocardial infarction Father Ulcerative colitis Grandfather (Paternal) Myocardial infarction Prostate cancer Lymphoma Grandmother (Paternal) Myocardial infarction Diabetes Grandfather (Maternal) Melanoma Aunt Crohn's disease Denies family history of Ovarian cancer Colorectal cancer Past Surgical History Surgical History Status post myringotomy with tube placement of both ears S/P wisdom tooth extraction S/P tonsillectomy and adenoidectomy Past Anesthesia History No Hx of Anesthesia Complications and No Family Hx of Anesthesia Complications History of PONV No Hx of PONV and No Hx of Motion Sickness Social History Smoking Status: Never smoker Do You Dip or Chew Tobacco: No Hx Alcohol Use: No Hx Substance Use: No Review of Systems ROS Unobtainable: All systems reviewed & are unremarkable except as noted in HPI & below and Unobtainable due to endotracheal tube Physical Exam Vital Signs Last Vital Signs Temp 36.6 C 03/24/24 10:40 Pulse 85 03/24/24 12:30 Resp 18 03/24/24 08:41 BP 120/70 03/24/24 12:30 O2 Del Method Room Air 03/24/24 08:41 ENMT Mouth: no TMJ abnormality Thyromental Distance: > or= 3.5 Finger Breadths Mallampati Class: II Neck normal visual inspection and trachea midline; neck extension not limited Respiratory normal respiratory effort Auscultation: lungs clear to auscultation bilaterally Cardiovascular Rate/Rhythm: regular rate and regular rhythm Heart Sounds: no murmur Musculoskeletal Spine: normal cervical ROM Extremities: full ROM of extremities Neurologic moves all extremities Psychiatric Orientation: alert and oriented x 3 Testing Laboratory Results 03/24/24 08:03
[2024-03-24] MEDS: fentaNYL citrate PF 100 MCG/2 ML VIAL ONE (13:08)
[2024-03-24] MEDS: fentANYL 2 MCG/ML BUPIVacaine 0.125%-NSS 100ML BAG ONE (13:08)
[2024-03-24] MEDS: BUPIVACAINE 0.25% PF 30 ML VIAL ONE (13:09)
[2024-03-24] MEDS: LIDOCAINE 2%/EPINEPHRINE 1:200,000 20 ML PF ONE (13:09)
--- NOTE | 2024-03-24 15:19 | Delivery Summary ---
Vaginal Delivery Summary Date of Service March 24, 2024 Vaginal Delivery Summary and 2nd Degree LAC The patient dilated to complete and pushed to deliver a viable female infant Apgars 8 and 9 via over 2nd degree perineal laceration. Mouth and nose bulb suctioned at perineum. Shoulders and body delivered with ease wtih good maternal effort, McRobert's maneuvers and gentle downward traction. was vigorous and crying at . Cord clamped at 40 seconds of life and to maternal abdomen where the cord was then doubly clamped and cut. Placenta delivered spontaneously and intact, three-vessel cord. Hemostasis achieved with dilute pitocin and uterine massage and drainage of the bladder for approximately 75 cc under sterile conditions. Cervix and sulci intact. Laceration repaired in layers in routine fashion with 3-0 vicryl. QBL 235 cc. Mother and baby stable in recovery. [facility] [place] Charge Delivery Type Details: and 2nd Degree LAC
[2024-03-24] MEDS ORDERED: HYDROCORTISONE ACETATE 25 MG SUPP PR PRN (15:40)
[2024-03-24] MEDS ORDERED: ACETAMINOPHEN 325 MG TAB PO PRN (15:40)
[2024-03-24] MEDS ORDERED: oxyCODONE/ACETAMINOPHEN 5mg/325mg TAB PO PRN (15:40)
[2024-03-24] MEDS ORDERED: IBUPROFEN 600 MG TAB PO PRN (15:40)
[2024-03-24] MEDS: OXYTOCIN 20 UNITS/LR 1,002 ML IV SCH (15:59)
--- NOTE | 2024-03-24 17:37 | Anesthesia Procedure Note ---
Date of Service March 24, 2024 Anesthesia Post Epidural Note Vital Signs Vital Signs: Temp Pulse Resp BP Pulse Ox O2 Del Method 37.1 C 88 18 127/67 97 Room Air 03/24/24 15:19 03/24/24 17:23 03/24/24 16:20 03/24/24 17:23 03/24/24 15:18 03/24/24 08:41 Notes Mental Status: alert / awake / arousable and participated in evaluation Nausea / Vomiting: adequately controlled Pain: adequately controlled Airway Patency, RR, SpO2: stable & adequate BP & HR: stable & adequate Hydration State: stable & adequate Neuraxial Anesthesia: was administered and sensory block is resolving Anesthetic Complications: no major complications apparent Epidural: Removed without complications and With tip intact
[2024-03-24] MEDS: BENZOCAINE 20% SPRY 85 APPLN/85 GM CAN EXT PRN (19:44)
[2024-03-24] MEDS: DOCUSATE SODIUM 100 MG CAP PO SCH (21:04)
[2024-03-24] MEDS: SODIUM CHLORIDE 0.9% PF INJ 10 ML VIAL ONE (22:06)
[2024-03-24] MEDS: ePHEDrine sulfate 50 MG/ML AMP ONE (22:06)
[2024-03-24] MEDS: BUPIVACAINE 0.25% PF 30 ML VIAL EPI STA (22:07)
[2024-03-24] MEDS: fentaNYL citrate PF 100 MCG/2 ML VIAL EPI STA (22:07)
[2024-03-24] MEDS: SODIUM CHLORIDE 0.9% PF INJ 10 ML VIAL EPI STA (22:08)
[2024-03-24] MEDS: LIDOCAINE 2%/EPINEPHRINE 1:200,000 20 ML PF EPI STA (22:08)
[2024-03-25] MEDS: DIPHTHER/TETAN/PERTUS Vaccine (Tdap, Adol/Adult) 0.5mL IM ONE (02:38)
--- NOTE | 2024-03-25 06:30 | Obstetrical Progress Note ---
Date of Service <Macario West DO - Last Filed: 03/25/24 08:05> March 25, 2024 Assessment & Plan <Macario West DO - Last Filed: 03/25/24 08:05> (1) Encounter for assessment: Patient is PPD 1 s/p and doing well - Eating well, voiding well, ambulating well - vitals reviewed and within normal limits - pain well controlled with analgesics - OOB, ambulation, diet progression as tolerated - Blood type: O+, GBS neg, rubella immune - Plan to discharge today - After discharge, 6 week follow up with OB visit type: exam and care immediately after delivery Qualified Code(s): Z39.0 - Encounter for care and examination of mother immediately after delivery <Vicky Wesley MD, FACOG - Last Filed: 03/25/24 08:09> (1) Encounter for assessment: Subjective <Macario West DO - Last Filed: 03/25/24 08:05> 29 yo post- day 1 s/p Ambulation: ambulating normally Voiding: no voiding problems Passing Gas:: Yes Diet Tolerance:: regular diet Lochia:: Small Feeding Type:: breast feeding Current Pain Level: 2/10 Resting comfortably this AM in NAD. Denies ORDONEZ, CP, SOB, N/V/D, LE pain/swelling. Physical Exam <Macario West DO - Last Filed: 03/25/24 08:05> General: patient resting comfortably, NAD, non-toxic in appearance, answers questions appropriately. Skin: warm, dry, intact HEENT: NC/AT, anicteric sclera, conjunctiva without injection, moist mucus membranes. Heart: +S1/S2, regular, no m/r/g Lungs: equal air entry bilaterally, no rales/rhonchi/wheezes Abd: +BS, soft, NT/ND, uterine fundus firm at umbilicus Ext: warm, no clubbing/cyanosis or edema, Doe's neg. Neuro: nonfocal, speech intact, no facial droop, moving all extremities. Results & Data <Macario West DO - Last Filed: 03/25/24 08:05> Vital Signs (Past 12 Hours) Vital Signs Temp Pulse Resp BP Pulse Ox O2 Del Method 03/25/24 04:00 36.5 C 77 16 110/66 98 Room Air 03/24/24 23:55 36.8 C 69 16 111/69 97 Room Air 03/24/24 21:00 36.8 C 81 18 123/76 97 Room Air Supervising Physician <Vicky Wesley MD, FACOG - Last Filed: 03/25/24 08:09> Co-Signing Physician Notes Resident Physician Supervision Note: I was present with Dr. West during the history and exam. I discussed the case with the resident and agree with the findings and plan as documented in the note. Any exceptions or clarifications are listed here: pt doing well, eating, voiding, ambulating, dec bleeding, . abd soft ff 2 down nt, nt calves. tr edema. ppd#1 s/p , will plan dc later today, instructions to be reviewed by Dr. West. f/u 6 wk pp check. rhpos/RI Documented By: Vicky Wesley MD, FACOG Resident Activity Tracking <Macario West DO - Last Filed: 03/25/24 08:05> Resident Involvement: Resident Care Provided Care Provided: OB Delivery
[2024-03-25] MEDS: PRENATAL VITAMIN 1 TAB PO SCH (08:55)
[2024-03-25] MEDS ORDERED: bisacodyL 5 MG TABEC PO SCH (20:00)
== END 2024-03-25 15:45 | disposition home or self-care (01) | DRG 807 ==
LOC: 4S1 07:33 → 4E2 17:54